=== PATIENT | female | born 1945 | race Caucasian/White ===

== ENCOUNTER → 2019-05-22 | Outpatient (CLI) | payer OTHER | END | disposition home or self-care (01) | LOC: PETCFH 12:19 | PROVIDERS: ATTEND Family Medicine | DX: K44.9 Diaphragmatic hernia without obstruction or gangrene (principal); D03.9 Melanoma in situ, unspecified; I10 Essential (primary) hypertension; E78.2 Mixed hyperlipidemia | CPT/HCPCS: 78816; A9552 ==